=== PATIENT | female | born 1960 | race Caucasian/White ===

== ENCOUNTER 2021-05-15 13:37 | Outpatient (CLI) | payer OTHER ==
--- NOTE | 2021-05-15 14:04 | XRAY Report ---
PROCEDURE: Foot 3 View LT INDICATIONS: PAIN LEFT FOOT TECHNIQUE: 3 views of the foot were acquired. COMPARISON: None. FINDINGS: BONES: No acute, displaced fracture or dislocation. Small plantar calcaneal enthesophyte. Osteophytos is about the hallux sesamoids. Moderate joint space loss with osteophytosis of the first metatarsopha langeal joint. SOFT TISSUES: No focal abnormality. IMPRESSION: 1.Degenerative changes of the foot as detailed above. Reviewed by: Royce Fallon MD on 05/15/2021 2:02 PM PDT Approved by: Royce Fallon MD on 05/15/2021 2:02 PM PDT Station ID: [id number]
== END 2021-05-15 13:38 | disposition home or self-care (01) ==
LOC: DI.S 13:37
PROVIDERS: ATTEND Naturopath
DX: M19.072 Primary osteoarthritis, left ankle and foot (principal)

== ENCOUNTER 2022-02-03 17:30 | Emergency (ER) | payer BC, OTHER ==
[2022-02-03 17:47] VITALS: BP 121/65
[2022-02-03] MEDS ORDERED: DOXYCYCLINE 100 MG TABLET PO STA (18:01)
--- NOTE | 2022-02-03 18:03 | ED Physician Documentation ---
PD HPI WOUND RECHECK - Stated complaint Stated Complaint: BUG BITE LT SIDE/C+ - Chief complaint Chief Complaint: Wound - Histroy obtained from History obtained from: Patient - Additional information Additional information: She has been outside quite a bit lately and thinks she has a bug bite from yesterday. Did not see a bug or tick. Wonders about Lyme disease possibility. The rash around the bug bite which is on the left lower lateral abdominal wall is quite itchy and burning. She has not been traveling. Review of Systems Constitutional: reports: Reviewed and negative Eyes: reports: Reviewed and negative Ears: reports: Reviewed and negative Cardiac: reports: Reviewed and negative Respiratory: reports: Reviewed and negative PD PAST MEDICAL HISTORY - Present Medications Home Medications: Ambulatory Orders Medication Instructions Recorded Confirmed Doxycycline Hyclate 100 mg PO BID #20 tab.sr 02/03/22 Valacyclovir HCl [Valtrex] 500 mg PO DAILY 02/03/22 02/03/22 - Allergies Allergies/Adverse Reactions: Allergies Allergy/AdvReac Type Severity Reaction Status Date / Time No Known Drug Allergies Allergy Verified 02/03/22 17:46 PD ED PE NORMAL - Vitals Vital signs reviewed: Yes - General General: Alert and oriented X 3, No acute distress - Abdomen Abdomen: Non tender - Derm Derm: Other (There is a palm sized red area of redness above the pelvic brim laterally on the left. He does have some bull's-eye characteristic.) - Neuro Neuro: Alert and oriented X 3, Normal speech Results - Vitals Vitals: Vital Signs - 24 hr 02/03/22 17:44 Temperature 38 C H Heart Rate 87 Respiratory 16 Rate Blood Pressure 121/65 O2 Saturation 98 Oxygen O2 Source Room air PD MEDICAL DECISION MAKING - ED course ED course: I discussed with her that if she has been traveling and did not see a tick, erythema migrans/early Lyme disease is unlikely. She would still like to go ahead with prophylaxis. Departure - Departure Disposition: 01 Home, Self Care Clinical Impression: Bug bite Qualifiers: Encounter type: initial encounter Qualified Code(s): W57.XXXA - Bitten or stung by nonvenomous insect and other nonvenomous arthropods, initial encounter Condition: Good Record reviewed to determine appropriate education?: Yes Instructions: ED Bite Tick Abx Tx Prescriptions: Doxycycline Hyclate 100 mg PO BID #20 tab.sr Comments: As discussed we are treating you with doxycycline for Lyme prophylaxis. For the itching related to the bug bite you can take [id number] hydrocortisone ointment and use as directed. Stay out of the sun too much while on the doxycycline as it makes you sun sensitive. Return for new or worsening symptoms. Follow-up with your primary care physician, discuss if subsequent Lyme testing is appropriate.
== END 2022-02-03 18:16 | disposition home or self-care (01) ==
LOC: ED 17:30
DX: S30.861A Insect bite (nonvenomous) of abdominal wall, initial encounter (principal); W57.XXXA Bitten or stung by nonvenomous insect and other nonvenomous arthropods, initial encounter
CPT/HCPCS: 99282; A9270

== ENCOUNTER 2022-05-31 13:23 | Outpatient (CLI) | payer BC ==
--- NOTE | 2022-05-31 14:34 | XRAY Report ---
PROCEDURE: Foot 3 View RT INDICATIONS: RIGHT FOOT PAIN TECHNIQUE: 3 views of the foot were acquired. COMPARISON: Contralateral left foot radiographs 05/15/2021. FINDINGS: Bones: No fractures or dislocations. Small calcaneal spurs. Degenerative changes in the foot. This is moderate at the first MTP joint. No suspicious bony lesions. Soft tissues: No tibiotalar joint effusion. Achilles tendon appears normal. IMPRESSION: Small calcaneal spurs. Moderate degenerative change at the first MTP joint. Reviewed by: Baljeet Mccann MD on 05/31/2022 1:33 PM [facility] Approved by: Baljeet Mccann MD on 05/31/2022 1:33 PM [facility]OL[facility] Station ID: [id number]
== END 2022-05-31 13:24 | disposition home or self-care (01) ==
LOC: DI.S 13:23
PROVIDERS: ATTEND Naturopath
DX: M77.31 Calcaneal spur, right foot (principal); M19.071 Primary osteoarthritis, right ankle and foot

== ENCOUNTER 2022-06-17 09:54 | Outpatient (CLI) | payer BC ==
--- NOTE | 2022-06-25 12:02 | Mammography Report ---
BILATERAL DIGITAL SCREENING MAMMOGRAM 3D/2D WITH EXAGGERATED CC: 06/17/2022 CLINICAL: Routine screening. No prior exams were available for comparison. Both breasts are almost entirely fatty (category a/<25% glandular tissue). No significant masses, calcifications, or other findings are seen in either breast. IMPRESSION: NEGATIVE There is no mammographic evidence of malignancy. A 1 year screening mammogram is recommended. Based on the Tyrer Cuzick model (a risk assessment model) the patients lifetime risk is 4.6% and her 10 year risk is 2.0%. According to the ACR, ACS, and NCCN guidelines, an annual breast MRI exam eric g with mammogram is recommended if the patients lifetime risk is 20% or greater. This exam was interpreted at Station ID: [id number]. NOTE: For mammograms, a report in lay terms will be sent to the patient. Approximately 15% of breast malignancies will not be visualized mammographically. In the management of a palpable breast mass, a negative mammogram must not discourage biopsy of a clinically suspicious lesion. Electronically Signed By: Christiano Casey M.D. acr/penrad:06/25/2022 11:49:07 ACR BI-RADS Category 1: Negative 3341F PARENCHYMAL PATTERN: (F) - The breast(s) demonstrate(s) diffuse fatty replacement. BI-RADS CATEGORY: (1) - 1 RECOMMENDATION: (ANNUAL) - Recommend routine annual screening mammography. [id number] 1 year screening LATERALITY: (B)
== END 2022-06-17 09:55 | disposition home or self-care (01) ==
LOC: DI.S 09:54
PROVIDERS: ATTEND Internal Medicine
DX: Z12.31 Encounter for screening mammogram for malignant neoplasm of breast (principal)